=== PATIENT | male | born 1975 | race Caucasian/White ===

== ENCOUNTER 2018-09-28 14:04 | Observation (INO) | payer OTHER ==
--- OUTSIDE RECORDS SUMMARY | 2018-09-28 14:06 | XMS REPORT ---
:1975 Author Organization [employer] Care Team Providers Name Role Phone Gianluca La Nena Provider Role Unavailable Allergies, Adverse Reactions, Alerts Substance Reaction Event Type N.K.D.A. 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 Assessment Establishing care with new doctor, Z76.89 Active encounter for Problem Hypogonadism in male E29.1 Active Problem Erectile dysfunction, unspecified N52.9 Active erectile dysfunction type Medications Medication Code Code Instructions Start End Status Dosage System Date Date Polytrim [facility] 35166519481 05678-6.1 Active 1 drop into UNIT/ML affected Ophthalmic Four eye times a day Probiotic [facility] 23156-80743 Active not defined Ibuprofen [facility] [id number] Active not defined Cialis [facility] [id number] 5 MG Orally Active 1 tablet as Once a day needed Testosterone [facility] [address]-26 Active not defined Xyzal ND 0 Active not defined Results No Known Results Summary Purpose [employer]Clinical[employer] Submission
[2018-09-28] MEDS ORDERED: ONDANSETRON 4 MG/2 ML VIAL ONE (14:47)
[2018-09-28] MEDS ORDERED: MORPHINE 4 MG/ML SYR ONE ×2 (14:47→15:09)
[2018-09-28] MEDS ORDERED: NA CHLORIDE 0.9% 1,000 ML ONE ×2 (14:47→16:19)
[2018-09-28] MEDS ORDERED: KETOROLAC 30 MG/ML INJ ONE (14:47)
[2018-09-28 15:09] LABS: Absolute Lymphocytes (CBC) 1.8 K/uL (0.7-4.9); Absolute Monocytes 0.6 K/uL (0.1-1.3); Absolute Neutrophil 5.6 K/uL (1.8-8.0); Basophils % 0.5 % (0-1.3); Eosinophils % 1.1 % (0-4.4); Hematocrit 46.8 % (39.6-49.0); Lymphocytes % 22.1 % (15.3-44.8); MPV 9.3 fL (7.6-11.3); Monocytes % 7.8 % (3.3-12.3); RBC Red Blood Cell Count 5.53 M/uL (4.33-5.43)
[2018-09-28 15:15] LABS: Urine Blood 3+ (NEG); Urine Glucose NEGATIVE (NEG); Urine Protein 2+ (NEG); Urine Specific Gravity >1.030 (1.005-1.030); Urine pH 5.5 (5.0-7.0)
[2018-09-28 15:19] LABS: Albumin 4.2 g/dL (3.4-5.0); Bilirubin Direct 0.1 mg/dL (0-0.2); Bilirubin Total 0.7 mg/dL (0.2-1.0); Potassium 3.8 mmol/L (3.5-5.1); Protein, Total 7.8 g/dL (6.4-8.2)
[2018-09-28] MEDS ORDERED: FENTANYL CITR 100 MCG/2 ML ONE ×2 (15:21→19:08)
--- NOTE | 2018-09-28 15:31 | RAD REPORT ---
EXAM DESCRIPTION: CT - Stone Protocol - 09/28/2018 3:18 pm CLINICAL HISTORY: Abdominal pain. Lower abdominal pain. Urinary frequency COMPARISON: None. TECHNIQUE: Computed axial tomography of the abdomen pelvis was obtained without oral or IV contrast. Lack of IV and oral contrast limits evaluation of solid organs, bowel, and vessels. Coronal reformat anuj images were obtained and reviewed. All CT scans are performed using dose optimization technique as appropriate and may include automated exposure control or mA/KV adjustment according to patient size. FINDINGS: Small bilateral renal calculi are present. Mild left hydronephrosis. Within the distal lef t ureter is a 3 millimeter calculus. The liver, spleen, pancreas and adrenals appear grossly normal There is no evidence of diverticulitis. IMPRESSION: 3 millimeter calculus distal left ureter resulting in mild left hydronephrosis
[2018-09-28] MEDS ORDERED: TAMSULOSIN 0.4 MG SR CAP ONE (16:19)
[2018-09-28] MEDS ORDERED: HYDROMORPHONE HCL 2 MG/ML inj ONE (17:25)
--- NOTE | 2018-09-28 18:04 | ER ---
Nurse's Notes [facility] Name: Charlie Tirado Age: 43 yrs Sex: Male : 1975 Arrival Date: 09/28/2018 Time: 14:05 Bed 27 Private MD: Gab Sarmiento Diagnosis: Calculus of kidney and ureter;Intractable Pain Presentation: 09/28 14:20 Presenting complaint: Patient states: left flank pain that radiates to LLQ, started sv this morning. Transition of care: patient was not received from another setting of care. Onset of symptoms was September 28, 2018. Care prior to arrival: Medication(s) given: Motrin, Tylenol. 14:20 Method Of Arrival: Ambulatory sv 14:20 Acuity: PAVEL 2 sv 15:13 Risk Assessment: Do you want to hurt yourself or someone else? Patient reports no tw2 desire to harm self or others. Initial Sepsis Screen: Does the patient meet any 2 criteria? No. Patient's initial sepsis screen is negative. Does the patient have a suspected source of infection? No. Patient's initial sepsis screen is negative. Triage Assessment: 21:17 General: Behavior is calm. rv Historical: - Allergies: 14:21 No Known Allergies; sv - PMHx: 14:21 Kidney stones; sv - PSHx: 14:21 Appendectomy; sv - Immunization history:: Adult Immunizations up to date. - Social history:: Smoking status: Patient/guardian denies using tobacco. - Ebola Screening: : Patient denies travel to an Ebola-affected area in the 21 days before illness onset. Screenin:14 Abuse screen: Denies threats or abuse. Nutritional screening: No deficits noted. tw2 Tuberculosis screening: No symptoms or risk factors identified. Fall Risk None identified. Assessment: 14:25 General: Appears uncomfortable. Pain: Complains of pain in left flank. Neuro: Level of tw2 Consciousness is awake, alert, obeys commands, Oriented to person, place, time, situation. Cardiovascular: Heart tones S1 S2 Patient's skin is warm and dry. Respiratory: Airway is patent Respiratory effort is even, unlabored, Respiratory pattern is regular, symmetrical, Breath sounds are clear bilaterally. GI: Bowel sounds present X 4 quads. Abd is soft X 4 quads. : No signs and/or symptoms were reported regarding the genitourinary system. EENT: No signs and/or symptoms were reported regarding the EENT system. Derm: No signs and/or symptoms reported regarding the dermatologic system. Musculoskeletal: Range of motion: intact in all extremities. 14:52 Reassessment: pt writhing in pain at this time, no change in condition after pain tw2 medicine, provider notified. 16:46 Reassessment: Patient and/or family updated on plan of care and expected duration. Pain rv level reassessed. Patient is alert, oriented x 3, equal unlabored respirations, skin warm/dry/pink. Vital Signs: 14:21 BP 123 / 87; Pulse 67; Resp 18; Temp 97.6; Pulse Ox 100% ; Weight 92.99 kg; Height 5 sv ft. 7 in. (170.18 cm); Pain 8/10; 15:02 BP 122 / 81; Pulse 68; Resp 17 S; Pulse Ox 98% on R/A; rv 15:30 BP 123 / 83; Pulse 58; Resp 16 S; Pulse Ox 98% on R/A; rv 16:00 BP 115 / 78; Pulse 70; Resp 18 S; Pulse Ox 98% on R/A; rv 16:30 BP 123 / 75; Pulse 58; Resp 16 S; Pulse Ox 98% on R/A; rv 17:00 BP 124 / 87; Pulse 64; Resp 16; Pulse Ox 97% on R/A; rv 17:30 BP 124 / 79; Pulse 64; Resp 16; Pulse Ox 100% on R/A; rv 18:00 BP 104 / 25; Pulse 70; Resp 18 S; Pulse Ox 100% on R/A; rv 18:30 BP 126 / 81; Pulse 87; Resp 18; Pulse Ox 100% on R/A; rv 19:00 BP 120 / 80; Pulse 57; Resp 17 S; Pulse Ox 100% on R/A; rv 19:30 BP 114 / 69; Pulse 69; Resp 18; Pulse Ox 96% on R/A; rv 20:00 BP 116 / 73; Pulse 56; Resp 18; Pulse Ox 97% on R/A; rv 20:30 BP 122 / 78; Pulse 75; Resp 16; Pulse Ox 96% on R/A; rv 21:00 BP 130 / 80; Pulse 54; Resp 18 S; Pulse Ox 98% on R/A; rv 14:21 Body Mass Index 32.11 (92.99 kg, 170.18 cm) sv ED Course: 14:05 Patient arrived in ED. as 14:06 Gab Sarmiento MD is Private Physician. as 14:20 Triage completed. sv 14:21 Arm band placed on. sv 14:22 Pulse ox on. NIBP on. tw2 14:31 Dorene Escamilla, MELI is Primary Nurse. tw2 14:34 Filipe Rodriguez PA is PHCP. jm 14:34 Ramon Cobb MD is Attending Physician. jmm 14:48 Inserted saline lock: 20 gauge in left antecubital area, using aseptic technique. lt1 14:49 Initial lab(s) drawn, by me, sent to lab. lt1 15:14 Placed in gown. Bed in low position. Adult w/ patient. tw2 15:18 CT completed. Patient tolerated procedure well. Patient moved to CT. Patient moved back nj from CT. 15:19 CT Stone Protocol In Process Unspecified. EDMS 19:11 Ramon Gaona MD is Hospitalizing Provider. [facility] 21:17 No provider procedures requiring assistance completed. Patient admitted, IV remains in rv place. intact. Administered Medications: 14:45 Drug: Zofran 4 mg Route: IVP; Site: left antecubital; tw2 15:03 Follow up: Response: No adverse reaction tw2 14:46 Drug: morphine 4 mg Route: IVP; Site: left antecubital; tw2 15:02 Follow up: Response: No adverse reaction; Pain is unchanged, physician notified tw2 14:47 Drug: Ketorolac 30 mg Route: IVP; Site: left antecubital; tw2 15:03 Follow up: Response: No adverse reaction; Pain is decreased tw2 14:50 Drug: NS 0.9% 1000 ml Route: IV; Rate: 1 bolus; Site: left antecubital; tw2 16:44 Follow up: IV Status: Completed infusion rv 15:00 Drug: morphine 4 mg Route: IVP; Site: left antecubital; tw2 15:20 Follow up: Response: Pain is unchanged, physician notified rv 15:19 Drug: fentaNYL (PF) 50 mcg Route: IVP; Site: left antecubital; rv 16:43 Follow up: Response: Pain is decreased rv 16:00 Drug: NS 0.9% 1000 ml Route: IV; Rate: 1 bolus; Site: left antecubital; rv 19:14 Follow up: IV Status: Completed infusion rv 16:00 Drug: Flomax 0.4 mg Route: PO; rv 16:44 Follow up: Response: Pain is decreased rv 17:18 Drug: Dilaudid 1 mg Route: IVP; Site: left antecubital; rv 18:27 Follow up: Response: Pain is decreased rv 18:50 Drug: fentaNYL (PF) 25 mcg Route: IVP; Site: left antecubital; rv 21:20 Follow up: Response: Pain is decreased rv Outcome: 18:04 Discharge ordered by . palak 19:11 Decision to Hospitalize by Provider. palak 21:18 Admitted to Med/surg accompanied by tech, via wheelchair, room 229, with chart, Report rv called to SAMIR GARRISON 21:18 Condition: good 21:18 Instructed on the need for admit. 21:20 Patient left the ED. rv Signatures: Dispatcher [employer] EDMakayla Mckay, RN RN Filipe Rodriguez PA PA jmm Martinez, Amelia as Wise, Tara RN RN tw2 Jerel Kimble Ronaldo RN RN Miracle Barrow [facility] Corrections: (The following items were deleted from the chart) 14:24 14:20 Acuity: PAVEL 3 [facility]
--- NOTE | 2018-09-28 18:05 | EDPHYS ---
Physician Documentation [facility] Name: Charlie Tirado Age: 43 yrs Sex: Male : 1975 Arrival Date: 09/28/2018 Time: 14:05 Bed 27 Private MD: Gab Sarmiento ED Physician Ramon Cobb HPI: 09/28 14:38 This 43 yrs old Male presents to ER via Ambulatory with complaints of jmm Possible Kidney Stone. 14:38 The patient complains of pain in the left flank. Onset: The symptoms/episode jmm began/occurred acutely, this morning. Associated signs and symptoms: Pertinent positives: nausea, Pertinent negatives: fever. This is a 43 year old male with a history of kidney stones that presents to the ED with complaints of left flank pain beginning this morning similar to previous episodes of kidney stones. . Historical: - Allergies: 14:21 No Known Allergies; sv - PMHx: 14:21 Kidney stones; sv - PSHx: 14:21 Appendectomy; sv - Immunization history:: Adult Immunizations up to date. - Social history:: Smoking status: Patient/guardian denies using tobacco. - Ebola Screening: : Patient denies travel to an Ebola-affected area in the 21 days before illness onset. ROS: 14:38 Abdomen/GI: Positive for nausea. jmm 14:38 Back: Positive for flank pain, on the left. 14:38 All other systems are negative. Exam: 14:38 Constitutional: This is a well developed, well nourished patient who is awake, alert, jmm and in no acute distress. Head/Face: atraumatic. Eyes: EOMI, no conjunctival erythema appreciated ENT: Moist Mucus Membranes Neck: Trachea midline, Supple Chest/axilla: Normal chest wall appearance and motion. Cardiovascular: Regular rate and rhythm. No edema appreciated Respiratory: Normal respirations, no respiratory distress appreciated Abdomen/GI: Non distended, soft Back: Normal ROM Skin: General appearance color normal MS/ Extremity: Moves all extremities, no obvious deformities appreciated, no edema noted to the lower extremities Neuro: Awake and alert, normal gait Psych: Behavior is normal, Mood is normal, Patient is cooperative and pleasant 14:38 Back: CVA tenderness, that is moderate, is noted on the left. Vital Signs: 14:21 BP 123 / 87; Pulse 67; Resp 18; Temp 97.6; Pulse Ox 100% ; Weight 92.99 kg; Height 5 sv ft. 7 in. (170.18 cm); Pain 8/10; 15:02 BP 122 / 81; Pulse 68; Resp 17 S; Pulse Ox 98% on R/A; rv 15:30 BP 123 / 83; Pulse 58; Resp 16 S; Pulse Ox 98% on R/A; rv 16:00 BP 115 / 78; Pulse 70; Resp 18 S; Pulse Ox 98% on R/A; rv 16:30 BP 123 / 75; Pulse 58; Resp 16 S; Pulse Ox 98% on R/A; rv 17:00 BP 124 / 87; Pulse 64; Resp 16; Pulse Ox 97% on R/A; rv 17:30 BP 124 / 79; Pulse 64; Resp 16; Pulse Ox 100% on R/A; rv 18:00 BP 104 / 25; Pulse 70; Resp 18 S; Pulse Ox 100% on R/A; rv 18:30 BP 126 / 81; Pulse 87; Resp 18; Pulse Ox 100% on R/A; rv 19:00 BP 120 / 80; Pulse 57; Resp 17 S; Pulse Ox 100% on R/A; rv 19:30 BP 114 / 69; Pulse 69; Resp 18; Pulse Ox 96% on R/A; rv 20:00 BP 116 / 73; Pulse 56; Resp 18; Pulse Ox 97% on R/A; rv 20:30 BP 122 / 78; Pulse 75; Resp 16; Pulse Ox 96% on R/A; rv 21:00 BP 130 / 80; Pulse 54; Resp 18 S; Pulse Ox 98% on R/A; rv 14:21 Body Mass Index 32.11 (92.99 kg, 170.18 cm) sv MDM: 14:35 Patient medically screened. [facility] 17:15 Data reviewed: vital signs, nurses notes, lab test result(s), radiologic studies, CT [facility] scan. Counseling: I had a detailed discussion with the patient and/or guardian regarding: the historical points, exam findings, and any diagnostic results supporting the discharge/admit diagnosis, lab results, radiology results, the need for outpatient follow up. 18:02 ED course: Symptoms relieved in the ED. Patient was given return precautions for [facility] increased pain, vomiting, fever, or any other concerning symptoms. Patient understood and agrees with the plan of care. . 19:10 ED course: Pain returned. I discussed the patient with Dr. Shaw whom will consult on [facility] admission. I discussed the patient with Dr. Gaona whom accepted admission. . 09/28 14:34 Order name: Basic Metabolic Panel; Complete Time: 15:29 [facility] 09/28 14:34 Order name: CBC with Diff; Complete Time: 15:29 [facility] 09/28 14:34 Order name: Creatinine for Radiology; Complete Time: 15:29 [facility] 09/28 14:34 Order name: Hepatic Function; Complete Time: 15:29 [facility] 09/28 14:34 Order name: Lipase; Complete Time: 15:29 [facility] 09/28 14:59 Order name: Urine Dipstick--Ancillary (enter results); Complete Time: 15:16 09/28 20:16 Order name: CBC with Automated Diff [facility] 09/28 20:16 Order name: CBC with Automated Diff [facility] 09/28 20:16 Order name: Comprehensive Metabolic Panel [facility] 09/28 20:16 Order name: Comprehensive Metabolic Panel [facility] 09/28 20:16 Order name: Magnesium [facility] 09/28 20:16 Order name: Magnesium [facility] 09/28 20:16 Order name: Phosphorus [facility] 09/28 20:16 Order name: Phosphorus [facility] 09/28 14:35 Order name: CT Stone Protocol; Complete Time: 15:33 [facility] 09/28 20:15 Order name: CONS Physician Consult [facility] 09/28 20:16 Order name: Protime (+INR) [facility] 09/28 20:16 Order name: Protime (+INR) [facility] 09/28 20:16 Order name: PTT, Activated Partial Thromb [facility] 09/28 20:16 Order name: PTT, Activated Partial Thromb [facility] 09/28 14:34 Order name: IV Saline Lock; Complete Time: 14:52 [facility] 09/28 14:34 Order name: Labs collected and sent; Complete Time: 14:52 [facility] 09/28 20:15 Order name: NPO EDMS Administered Medications: 14:45 Drug: Zofran 4 mg Route: IVP; Site: left antecubital; tw2 15:03 Follow up: Response: No adverse reaction tw2 14:46 Drug: morphine 4 mg Route: IVP; Site: left antecubital; tw2 15:02 Follow up: Response: No adverse reaction; Pain is unchanged, physician notified tw2 14:47 Drug: Ketorolac 30 mg Route: IVP; Site: left antecubital; tw2 15:03 Follow up: Response: No adverse reaction; Pain is decreased tw2 14:50 Drug: NS 0.9% 1000 ml Route: IV; Rate: 1 bolus; Site: left antecubital; tw2 16:44 Follow up: IV Status: Completed infusion rv 15:00 Drug: morphine 4 mg Route: IVP; Site: left antecubital; tw2 15:20 Follow up: Response: Pain is unchanged, physician notified rv 15:19 Drug: fentaNYL (PF) 50 mcg Route: IVP; Site: left antecubital; rv 16:43 Follow up: Response: Pain is decreased rv 16:00 Drug: NS 0.9% 1000 ml Route: IV; Rate: 1 bolus; Site: left antecubital; rv 19:14 Follow up: IV Status: Completed infusion rv 16:00 Drug: Flomax 0.4 mg Route: PO; rv 16:44 Follow up: Response: Pain is decreased rv 17:18 Drug: Dilaudid 1 mg Route: IVP; Site: left antecubital; rv 18:27 Follow up: Response: Pain is decreased rv 18:50 Drug: fentaNYL (PF) 25 mcg Route: IVP; Site: left antecubital; rv 21:20 Follow up: Response: Pain is decreased rv Disposition: 09/28/18 19:11 Hospitalization ordered by Ramon Gaona for Observation. Preliminary diagnosis are Calculus of kidney and ureter, Intractable Pain. - Bed requested for Telemetry/MedSurg (observation). - Status is Observation. rv - Condition is Stable. - Problem is an acute exacerbation. - Symptoms are unchanged. UTI on Admission? No Signatures: Dispatcher [employer] Makayla Jamison, RN RN Filipe Sheldon PA PA jmm Garcia, Cindy, RN RN Dorene Escamilla RN RN tw2 Ashok Mccord RN RN rv Corrections: (The following items were deleted from the chart) 18:34 18:04 09/28/2018 18:04 Discharged to Home. Impression: Calculus of kidney and ureter. [facility] Condition is Stable. Forms are Work release form, Medication Reconciliation Form, Thank You Letter, Antibiotic Education, Prescription Opioid Use. Follow up: Private Physician; When: 2 - 3 days; Reason: Recheck today's complaints, Continuance of care, Re-evaluation by your physician. [facility] 20:18 19:11 Hospitalization Ordered by Ramon Gaona MD for Observation. Preliminary cg diagnosis is Calculus of kidney and ureter; Intractable Pain. Bed requested for Telemetry/MedSurg (observation). Status is Observation. Condition is Stable. Problem is an acute exacerbation. Symptoms are unchanged. UTI on Admission? No. [facility] 21:20 20:18 09/28/2018 19:11 Hospitalization Ordered by Ramon Gaona MD for Observation. rv Preliminary diagnosis is Calculus of kidney and ureter; Intractable Pain. Bed requested for Telemetry/MedSurg (observation). Status is Observation. Condition is Stable. Problem is an acute exacerbation. Symptoms are unchanged. UTI on Admission? No. cg
[2018-09-28] MEDS ORDERED: MAGNESIUM HYDROXIDE 8% 30 ML PO PRN (20:08)
[2018-09-28] MEDS ORDERED: ACETAMINOPHEN 500 MG TAB PO PRN (20:08)
[2018-09-28] MEDS ORDERED: HYDROCODONE/APAP 7.5/325 MG TAB PO PRN (20:08)
[2018-09-28] MEDS ORDERED: ONDANSETRON 4 MG/2 ML VIAL IV PRN (20:08)
[2018-09-28] MEDS ORDERED: HYDROMORPHONE HCL 1 MG/ML INJ IV PRN (20:30)
[2018-09-28] MEDS ORDERED: CEFTRIAXONE 1 GM/NS 50 ML 1 GM/50 ML BAG IV SCH (21:00)
[2018-09-28] MEDS ORDERED: CEFTRIAXONE 1000 MG/VIAL ONE (21:52)
[2018-09-28] MEDS ORDERED: NA CHLORIDE 0.9% 50 ML ONE (21:53)
[2018-09-28] MEDS: NA CHLORIDE 0.9% 1,000 ML IV SCH (21:59)
[2018-09-28 23:45] VITALS: O2SAT 100; BMI 32.2
[2018-09-29 01:05] LABS: Urine Appearance CLEAR; Urine Bilirubin NEGATIVE (NEG); Urine Blood TRACE (NEG); Urine Color YELLOW; Urine Glucose TRACE (NEG); Urine Protein NEGATIVE (NEG); Urine Urobilinogen 0.2 mg/dL (0.2-1.0); Urine pH 6.5 (5.0-7.0)
[2018-09-29 01:08] LABS: Urine Microscopic Reflex ORDER UMIC
[2018-09-29 01:17] LABS: Urine Bacteria <20 /HPF (NONE SEEN); Urine Culture Reflex Order NOT NEEDED
[2018-09-29 06:02] LABS: Absolute Lymphocytes (CBC) 2.2 K/uL (0.7-4.9); Absolute Monocytes 1.5 K/uL (0.1-1.3); Absolute Neutrophil 7.8 K/uL (1.8-8.0); Basophils % 0.3 % (0-1.3); Eosinophils % 0.1 % (0-4.4); Hematocrit 43.2 % (39.6-49.0); Lymphocytes % 19.3 % (15.3-44.8); MPV 9.1 fL (7.6-11.3); Monocytes % 13.2 % (3.3-12.3)
--- NOTE | 2018-09-29 06:13 | P.HP ---
Certification for Inpatient Patient admitted to: Observation With expected LOS: <2 Midnights Patient will require the following post-hospital care: None Practitioner: I am a practitioner with admitting privileges, knowledge of patient current condition, hospital course, and medical plan of care. Services: Services provided to patient in accordance with Admission requirements found in Title 42 Section 412.3 of the Code of Federal Regulations Patient History Date of Service: 09/28/18 Reason for admission: Nephrolithiasis History of Present Illness: Pt is a 43yo gentleman who came to the hospital with flank tenderness. Patient was having severe pain in the left side. Patient came into the ER and was found to have a kidney stone in the left ureter along with left hydronephrosis. Patient was having pain to the degree where we decided to admit him to the hospital for pain control. Will get Urology consultation in the morning. Allergies No Known Allergies Allergy (Unverified 10/01/11 08:48) Home Medications: Cetirizine HCl [Zyrtec*] 10 mg PO DAILY 09/28/18 Ibuprofen [Motrin*] 400 mg PO DAILY 09/28/18 Ciprofloxacin HCl [Cipro 250 MG Tablet*] 250 mg PO BID #14 tab 09/29/18 - Past Medical/Surgical History Has patient received pneumonia vaccine in the past: No Diabetic: No Past Medical History: Patient denies medical history -: Appendectomy - Family History Father Family History: Reviewed- Non-Contributory - Social History Smoking Status: Never smoker Alcohol use: No CD- Drugs: No Caffeine use: Yes Place of Residence: Home Review of Systems 10-point ROS is otherwise unremarkable Physical Examination - Vital Signs Temperature: 98.5 F Blood Pressure: 119/58 Pulse: 68 Respirations: 18 Pulse Ox (%): 99 - Physical Exam General: Alert, In no apparent distress, Oriented x3 HEENT: Atraumatic, PERRLA, Mucous membr. moist/pink, EOMI, Sclerae nonicteric Neck: Supple, 2+ carotid pulse no bruit, No LAD, Without JVD or thyroid abnormality Respiratory: Clear to auscultation bilaterally, Normal air movement Cardiovascular: Regular rate/rhythm, Normal S1 S2 Gastrointestinal: Normal bowel sounds, Soft and benign, Non-distended, Tenderness ( Left-sided flank tenderness) Musculoskeletal: No clubbing, No swelling, No tenderness Integumentary: No rashes Neurological: Normal gait, Normal speech, Normal strength at 5/5 x4 extr, Normal tone, Sensation intact, Cranial nerves 3-12 intact, Normal affect Lymphatics: No axilla or inguinal lymphadenopathy - Studies Laboratory Data (last 24 hrs) 09/28/18 14:43: Creatinine 1.18 09/28/18 14:43: WBC 8.1, Hgb 15.5, Hct 46.8, Plt Count 262 09/28/18 14:43: Sodium 141, Potassium 3.8, BUN 17, Creatinine 1.14, Glucose 91, Total Bilirubin 0.7, AST 24, ALT 59, Alkaline Phosphatase 114, Lipase 122 Assessment & Plan - Problems (Diagnosis) (1) Nephrolithiasis Onset Date: 09/29/18 Current Visit: Yes Status: Acute (2) Hydronephrosis Current Visit: Yes Status: Acute - Plan Plan: 1. IV fluids and IV antibiotics 2. UA with microscopy 3. urologist consultation 4. Pain control 5. Outpatient cystoscopy 6. Repeat abdominal film 7. GI and DVT prophylaxis - Advance Directives Does patient have a Living Will: No Does patient have a Durable POA for Healthcare: No - Code Status/Comfort Care Code Status Assessed: Yes Code Status: Full Code Critical Care: No Time Spent Managing PTS Care (In Minutes): 50
[2018-09-29 06:21] LABS: Protime INR 1.04
[2018-09-29 06:22] LABS: Albumin 3.4 g/dL (3.4-5.0); Bilirubin Total 0.6 mg/dL (0.2-1.0); Magnesium 1.9 mg/dL (1.8-2.4); Phosphorus 3.1 mg/dL (2.5-4.9); Potassium 4.3 mmol/L (3.5-5.1); Protein, Total 6.6 g/dL (6.4-8.2)
[2018-09-29] MEDS: NA CHLORIDE 0.9% 1,000 ML IV SCH (07:00)
[2018-09-29] MEDS ORDERED: CEFTRIAXONE/SWI 1gm 1 GM/10 ML SYR IV SCH (09:00)
[2018-09-29] MEDS ORDERED: ENOXAPARIN 40 MG/0.4 ML SQ SCH (09:00)
[2018-09-29 10:11] VITALS: BP 119/58; TEMP 98.5
--- NOTE | 2018-09-29 10:12 | P.DS ---
Discharge Date: 09/29/18 Disposition: ROUTINE DISCHARGE Discharge Condition: GOOD Reason for Admission: Nephrolithiasis - Problems (1) Nephrolithiasis Onset Date: 09/29/18 Current Visit: Yes Status: Acute (2) Hydronephrosis Current Visit: Yes Status: Acute Brief History of Present Illness: Pt is a 43yo gentleman who came to the hospital with flank tenderness. Patient was having severe pain in the left side. Patient came into the ER and was found to have a kidney stone in the left ureter along with left hydronephrosis. Patient was having pain to the degree where we decided to admit him to the hospital for pain control. Will get Urology consultation in the morning. Hospital Course: patient requested to speak with me in the morning. He stated he had passed a stone and felt much better. His flank tenderness had resolved. He says his insurance does not cover see him seeing Dr. Shaw. He has seen Dr. Shaw in the past but is not able to any more because of the insurance. Since he is feeling better he did not want me to consult Dr. Shaw. He wanted to go home and follow up as an outpatient with Urology that would take his insurance. At this time he is stable for discharge and will follow-up as an outpatient. Vital Signs/Physical Exam: Temp Pulse Resp BP Pulse Ox 98.5 F 68 18 119/58 L 99 09/29/18 10:10 09/29/18 10:10 09/29/18 10:10 09/29/18 10:10 09/29/18 10:10 General: Alert, In no apparent distress, Oriented x3 Laboratory Data at Discharge: WBC 11.6 K/uL (4.3-10.9) H D 09/29/18 05:42 Hgb 14.4 g/dL (13.6-17.9) 09/29/18 05:42 Hct 43.2 % (39.6-49.0) 09/29/18 05:42 Plt Count 222 K/uL (152-406) 09/29/18 05:42 PT 12.3 SECONDS (9.5-12.5) 09/29/18 05:42 INR 1.04 09/29/18 05:42 APTT 29.9 SECONDS (24.3-36.9) 09/29/18 05:42 Sodium 141 mmol/L (136-145) 09/29/18 05:42 Potassium 4.3 mmol/L (3.5-5.1) 09/29/18 05:42 BUN 17 mg/dL (7-18) 09/29/18 05:42 Creatinine 1.09 mg/dL (0.55-1.3) 09/29/18 05:42 Glucose 103 mg/dL (74-106) 09/29/18 05:42 Phosphorus 3.1 mg/dL (2.5-4.9) 09/29/18 05:42 Magnesium 1.9 mg/dL (1.8-2.4) 09/29/18 05:42 Total Bilirubin 0.6 mg/dL (0.2-1.0) 09/29/18 05:42 AST 17 U/L (15-37) 09/29/18 05:42 ALT 44 U/L (12-78) 09/29/18 05:42 Alkaline Phosphatase 104 U/L (45-117) 09/29/18 05:42 Lipase 122 U/L (73-393) 09/28/18 14:43 Home Medications: Cetirizine HCl [Zyrtec*] 10 mg PO DAILY 09/28/18 Ibuprofen [Motrin*] 400 mg PO DAILY 09/28/18 Ciprofloxacin HCl [Cipro 250 MG Tablet*] 250 mg PO BID #14 tab 09/29/18 New Medications: Ciprofloxacin HCl [Cipro 250 MG Tablet*] 250 mg PO BID #14 tab Patient Discharge Instructions: OK TO DC IV AND DC HOME. FOLLOW-UP WITH UROLOGY IN 1 WEEK. FOLLOW-UP WITH PCP IN 1-2 WEEKS. RETURN TO THE ER IF SYMPTOMS WORSENS Diet: Regular Activity: Fall precautions Followup: Lake Gilman MD [ACTIVE - CAN ADMIT] - Gab Sarmiento MD [Primary Care Provider] - Time spent managing pt's care (in minutes): 30
[2018-09-29] MEDS ORDERED: ENOXAPARIN 30 MG/0.3 ML SQ SCH (18:00)
== END 2018-09-29 11:00 | disposition home or self-care (01) ==
LOC: ER 14:04 → ERHOLD 20:08 → 2ND 21:13
PROVIDERS: ADMIT Hospitalist; ATTEND Hospitalist
DX: N13.2 Hydronephrosis with renal and ureteral calculous obstruction (principal)
CPT/HCPCS: 36415; 74176; 76377; 80048; 80053; 80076; 81003; 81015; 83690; 83735; 84100; 85025; 85610; 85730; 96361; 96374; 96375; 99285; G0378; J0696; J1170; J1650; J2405; J3010; J7030

== ENCOUNTER 2021-12-12 09:47 | Emergency (ER) | payer BC, OTHER ==
--- OUTSIDE RECORDS SUMMARY | 2021-12-12 10:01 | XMS REPORT | Continuity of Care Document ---
:1975 Author Organization [facility] t Address [facility] [place] [address] Care Team Providers Name Role Phone Unavailable Unavailable Unavailable Problems This patient has no known problems. Allergies, Adverse Reactions, Alerts This patient has no known allergies or adverse reactions. Medications Ordered Filled Start Stop Current Ordering Indication Dosage Frequency Signature Comments Components Source Medication Medication Date Date Medication? Clinician (SIG) Name Name Polytrim Polytrim Yes [place] [address] [facility] Ibuprofen Ibuprofen Yes [place] not [facility] [place] [facility] Cialis Cialis Yes [place] [address] [facility] [place] as needed [facility] Xyzal Xyzal Yes [place] not [facility] [place] [facility] Testosteron Testosteron Yes [place] not [facility] Probiotic Probiotic Yes [place] not [facility] [place] [facility] Procedures This patient has no known procedures. Encounters Start End Encounter Admission Attending Care Care Encounter Source Date/Time Date/Time Type Type Clinicians Facility Department ID 2021-08-19 2021-08-19 ambulatory [facility] [id number] [facility] 2021-05-09 2021-05-09 Outpatient [facility] [id number] [facility] 2021-02-12 2021-02-12 Outpatient [facility] [id number] [facility] 2021-02-04 2021-02-04 Out[facility] [id number] [facility] 2020-08-19 2020-08-19 Out[facility] [id number] [facility] 2020-08-14 2020-08-14 [facility] [id number] [facility] 2020-03-11 2020-03-11 [facility] [id number] [address] 09:15[facility] 09:15:00 [facility] 2020-02-27 2020-02-27 [facility] [id number] [address] 12:15[facility]00 12:15:00 t [facility] 2019-09-13 2019-09-13 [facility] [id number] 09:45[facility]00 09:45:00 t [facility] 2019-03-09 2019-03-09 [facility] [id number] 15:27:00 15:27:00 t [facility] 2019-03-09 2019-03-09 [facility] [id number] 10:30[facility]00 10:30:00 t Special[facility] 2018-09-14 2018-09-14 [facility] [id number] [address] 08:26[facility]00 08:26:00 t Specialty/[facility] - Special[facility] 2018-09-08 2018-09-08 [facility] [id number] 09:00[facility] 09:00:00 t Specialty/Nadja lane - Specialty rology [facility] Results This patient has no known results.
[2021-12-12] MEDS ORDERED: LIDOCAINE 1% MPF 5 ML VIAL ONE (10:11)
--- NOTE | 2021-12-12 10:39 | EDPHYS ---
Physician Documentation [facility] Name: Charlie Tirado Age: 46 yrs Sex: Male : 1975 Arrival Date: 12/12/2021 Time: 09:49 Bed 18 Private MD: None, None ED Physician Armando Le HPI: 12/12 10:13 This 46 yrs old Male presents to ER via Ambulatory with complaints of Abscess. jh7 10:13 The patient presents with an abscess of the right leg. Onset: The symptoms/episode jh7 began/occurred 4 day(s) ago. 46-year-old male presents for abscess on the right lateral thigh beginning 4 days ago. He states that he has had abscesses in the past. Denies any medical problems.. Historical: - Allergies: 09:55 No Known Allergies; ab2 - PMHx: 09:55 Kidney stones; ab2 - PSHx: 09:55 None; ab2 - Immunization history:: Adult Immunizations up to date. - Social history:: Smoking status: Patient denies any tobacco usage or history of. ROS: 10:13 Constitutional: Negative for fever, chills, and weight loss, Cardiovascular: Negative jh7 for chest pain, palpitations, and edema, Respiratory: Negative for shortness of breath, cough, wheezing, and pleuritic chest pain. 10:13 Skin: Positive for abscess. 10:13 All other systems are negative. Exam: 10:13 Constitutional: This is a well developed, well nourished patient who is awake, alert, jh7 and in no acute distress. Cardiovascular: Regular rate and rhythm with a normal S1 and S2. No gallops, murmurs, or rubs. Normal PMI, no JVD. No pulse deficits. Respiratory: Lungs have equal breath sounds bilaterally, clear to auscultation and percussion. No rales, rhonchi or wheezes noted. No increased work of breathing, no retractions or nasal flaring. 10:13 Skin: abscess, of the right leg, with fluctuance, that is mild, 2x3 cm, with induration. 18:24 Abdomen/GI: Soft, non-tender, with normal bowel sounds. No distension or tympany. No jh7 guarding or rebound. No evidence of tenderness throughout. MS/ Extremity: Pulses equal, no cyanosis. Neurovascular intact. Full, normal range of motion. Neuro: Awake and alert, GCS 15, oriented to person, place, time, and situation. Motor strength 5/5 in all extremities. Sensory grossly intact. Normal gait. Vital Signs: 09:54 BP 141 / 81; Pulse 77; Resp 17; Temp 98.6; Pulse Ox 98% on R/A; Weight 95.25 kg; Height ab2 5 ft. 7 in. (170.18 cm); Pain 0/10; 11:04 BP 132 / 78; Pulse 76; Resp 17; Temp 98.7(O); Pulse Ox 100% ; Pain 2/10; jh6 09:54 Body Mass Index 32.89 (95.25 kg, 170.18 cm) ab2 Procedures: 10:37 I \T\ D: Incision and drainage was performed for an abscess of the right right hip jh7 Prepped with Betadine, Anesthetized with 5 ml's 1% Lidocaine. Incised with #11 blade. Drained moderate amount purulent fluid. bloody fluid. Loculations removed. Packed with sterile gauze, Dressing: sterile 4x4 gauze, the patient tolerated the procedure well. MDM: 10:00 Patient medically screened. 7 10:37 Data reviewed: vital signs, nurses notes, and as a result, I will discharge patient. [facility] Data interpreted: Pulse oximetry: on room air is 98 %. Interpretation: normal. Counseling: I had a detailed discussion with the patient and/or guardian regarding: the historical points, exam findings, and any diagnostic results supporting the discharge/admit diagnosis, the need for outpatient follow up, a family practitioner, to return to the emergency department if symptoms worsen or persist or if there are any questions or concerns that arise at home. 12/12 10:13 Order name: I\T\D Setup; Complete Time: 10:20 jh7 Administered Medications: 10:19 Drug: Lidocaine (1 %) 1 vials Volume: 5 ml; Route: Infiltration; 6 Disposition: 18:24 Co-signature as Attending Physician, Armando KING was immediately available on-site ms3 in the Emergency Department for consultation in the care of the patient.. Disposition Summary: 12/12/21 10:38 Discharge Ordered Location: Home [facility] Problem: new [facility] Symptoms: have improved jh7 Condition: Stable jh7 Diagnosis - Cutaneous abscess of right lower limb [facility] Followup: [facility] - With: Private Physician - When: 48 Hours - Reason: Recheck today's complaints, Continuance of care, Re-evaluation by your physician Discharge Instructions: - Discharge Summary Sheet [facility] - Skin Abscess [facility] - Incision and Drainage [facility] Forms: - Medication Reconciliation Form [facility] - Thank You Letter [facility] - Antibiotic Education [facility] - Prescription Opioid Use [facility] Prescriptions: - mupirocin 2 % Topical ointment - apply 1 application by TOPICAL route 3 times per day for 7 days; 1 tube; 7 Refills: 0, Product Selection Permitted - Bactrim DS 800-160 mg Oral Tablet - take 1 tablet by ORAL route every 12 hours for 7 days; 14 tablet; Refills: 0, [facility] Product Selection Permitted Signatures: Armando Le, DO ms3 Sharla Olivas, RN RN jh6 Thom Blanco ab2 Sharla Robertson, MEDICAL ASSISTANT MEDICAL ASSISTANT 7 Corrections: (The following items were deleted from the chart) 18:27 18:24 Abdomen/GI: Soft, non-tender, with normal bowel sounds. No distension or tympany. 7 No guarding or rebound. No evidence of tenderness throughout. MS/ Extremity: Pulses equal, no cyanosis. Neurovascular intact. Full, normal range of motion. Neuro: Awake and alert, GCS 15, oriented to person, place, time, and situation. Cranial nerves II-XII grossly intact. Motor strength 5/5 in all extremities. Sensory grossly intact. Cerebellar exam normal. Normal gait. [facility]
--- NOTE | 2021-12-12 10:39 | ER ---
Nurse's Notes [facility] Name: Charlie Tirado Age: 46 yrs Sex: Male : 1975 Arrival Date: 12/12/2021 Time: 09:49 Bed 18 Private MD: None, None Diagnosis: Cutaneous abscess of right lower limb Presentation: 12/12 09:54 Chief complaint: Patient states: "I have a cyst on my right hip." Pt states this ab2 started a few days ago. Pt states it is warm and red. Coronavirus screen: Vaccine status: Patient reports receiving the 2nd dose of the covid vaccine. Client denies travel out of the [place] in the last 14 days. At this time, the client does not indicate any symptoms associated with coronavirus-19. Ebola Screen: Patient negative for fever greater than or equal to 101.5 degrees Fahrenheit, and additional compatible Ebola Virus Disease symptoms Patient denies exposure to infectious person. Patient denies travel to an Ebola-affected area in the 21 days before illness onset. No symptoms or risks identified at this time. Initial Sepsis Screen: Does the patient meet any 2 criteria? No. Patient's initial sepsis screen is negative. Does the patient have a suspected source of infection? No. Patient's initial sepsis screen is negative. Risk Assessment: Do you want to hurt yourself or someone else? Patient reports no desire to harm self or others. Onset of symptoms is unknown. 09:54 Method Of Arrival: Ambulatory ab2 09:54 Acuity: PAVEL 4 ab2 Triage Assessment: 09:56 General: Appears in no apparent distress. comfortable, Behavior is calm, cooperative, ab2 appropriate for age. Pain: Denies pain. EENT: No deficits noted. Neuro: Level of Consciousness is awake, alert, obeys commands, Oriented to person, place, time, situation, Appropriate for age Apron Man are equal bilaterally Moves all extremities. Gait is steady, Speech is normal, Facial symmetry appears normal. Cardiovascular: No deficits noted. Denies chest pain, shortness of breath. Respiratory: No deficits noted. Airway is patent Respiratory effort is even, unlabored, Respiratory pattern is regular, symmetrical. GI: No deficits noted. Abdomen is round non-distended. : No deficits noted. No signs and/or symptoms were reported regarding the genitourinary system. Derm: Abscess located on right hip. Musculoskeletal: No deficits noted. Historical: - Allergies: 09:55 No Known Allergies; ab2 - PMHx: 09:55 Kidney stones; ab2 - PSHx: 09:55 None; ab2 - Immunization history:: Adult Immunizations up to date. - Social history:: Smoking status: Patient denies any tobacco usage or history of. Screenin:23 Abuse screen: Denies threats or abuse. Nutritional screening: No deficits noted. jh6 Tuberculosis screening: No symptoms or risk factors identified. Fall Risk None identified. Assessment: 10:21 General: Appears in no apparent distress. Behavior is calm, cooperative. Pain: jh6 Complains of pain in left iliac crest and left hip Pain currently is 5 out of 10 on a pain scale. Quality of pain is described as burning, Pain began 2-3 days ago. Is continuous. Derm: Skin is intact, Wound noted Wound is abscess 3x5cm mainly induration no drainage. 11:02 Reassessment: wound cleaned i\\T\\d completed without issue. bandaged and wound care jh6 completed as well as wound care instructions Patient states symptoms have improved. Vital Signs: 09:54 BP 141 / 81; Pulse 77; Resp 17; Temp 98.6; Pulse Ox 98% on R/A; Weight 95.25 kg; Height ab2 5 ft. 7 in. (170.18 cm); Pain 0/10; 11:04 BP 132 / 78; Pulse 76; Resp 17; Temp 98.7(O); Pulse Ox 100% ; Pain 2/10; jh6 09:54 Body Mass Index 32.89 (95.25 kg, 170.18 cm) ab2 ED Course: 09:49 Patient arrived in ED. as 09:50 None, None is Private Physician. as 09:55 Triage completed. ab2 09:56 Arm band placed on left wrist. ab2 10:00 Sharla Livingston FNP [facility] jh7 10:00 Armando Le DO is Attending Physician. jh7 10:02 Sharla Olivas RN is Primary Nurse. jh6 10:24 Assist provider with I \\T\\ D: of an abscess on right hip. jh6 11:05 Patient did not have IV access during this emergency room visit. jh6 Administered Medications: 10:19 Drug: Lidocaine (1 %) 1 vials Volume: 5 ml; Route: Infiltration; 6 Outcome: 10:38 Discharge ordered by . 7 11:05 Discharged to home ambulatory. 6 11:05 Condition: good 11:05 Discharge instructions given to patient, Instructed on discharge instructions, follow up and referral plans. Demonstrated understanding of instructions, follow-up care, medications, Prescriptions given X 2. 11:06 Patient left the ED. 6 Signatures: Nadya Sewell Jennifer, RN RN 6 Thom Blanco Jennifer, CENTRAL PROCESSING TECH CENTRAL PROCESSING TECH 7
[2021-12-12 14:33] VITALS: BP 132/78; TEMP 98.7; O2SAT 100
== END 2021-12-12 11:06 | disposition home or self-care (01) ==
LOC: ER 09:47
PROC: 0H9HXZZ Drainage of Right Upper Leg Skin, External Approach (ICD-10-PCS; principal; 2021-12-12)
DX: L02.415 Cutaneous abscess of right lower limb (principal); Z87.442 Personal history of urinary calculi
CPT/HCPCS: 99283

== ENCOUNTER 2021-12-13 16:28 | Emergency (ER) | payer BC ==
--- OUTSIDE RECORDS SUMMARY | 2021-12-13 16:32 | XMS REPORT | Continuity of Care Document ---
:1975 Author Organization [facility] t Address [facility] [place] [address] Care Team Providers Name Role Phone Unavailable [...] Ibuprofen Yes [place] not [facility] [place] Cialis Cialis Yes [place] [address] [facility] [place] as needed [facility] Xyzal Xyzal Yes [place] not [facility] [place] [facility] Testosteron Testosteron Yes [place] [facility] Probiotic Probiotic Yes [place] not [facility] [place] [facility] Procedures This patient has no known procedures. Encounters Start End Encounter Admission Attending Care Care Encounter Source Date/Time Date/Time Type Type Clinicians Facility Department ID 2021-08-19 2021-08-19 [facility] [id number] 2021-05-09 2021-05-09 [facility] [id number] [facility] 2021-02-12 2021-02-12 Outpatient [facility] [id number] [facility] 2021-02-04 2021-02-04 Outpatient [facility] [id number] [facility] 2020-08-19 2020-08-19 Outpatient [facility] [id number] [facility] 2020-08-14 2020-08-14 [facility] [id number] 2020-03-11 2020-03-11 [facility] [id number] 09:15:00 09:15:00 t Specialty[facility] Clin[facility] 2020-02-27 2020-02-27 [facility] [id number] 12:15:00 12:15:00 t Specialty/[facility] Clin[facility] 2019-09-13 2019-09-13 [facility] [id number] 09:45:00 09:45:00 t Specialty/[facility] 2019-03-09 2019-03-09 [facility] [id number] 15:27:00 15:27:00 t Specialty/U [facility] - [facility] ent Clin[facility] 2019-03-09 2019-03-09 [facility] [id number] 10:30:00 10:30:00 t Specialty/[facility] Clin[facility] 2018-09-14 2018-09-14 [facility] [id number] [facility] 08:26:00 08:26:00 t Specialty/U Jodi kes - Specialty rology [facility] 2018-09-08 2018-09-08 [facility] [id number] [facility] 09:00:00 09:00:00 t Specialty/Nadja lane - Specialty rology [facility] Results This patient has no known results.
[2021-12-13] MEDS ORDERED: CLINDAMYCIN IV 150 MG/ML (4 mL) VIAL ONE (17:53)
[2021-12-13] MEDS ORDERED: LIDOCAINE 1% MPF 5 ML VIAL ONE (17:53)
[2021-12-13] MEDS ORDERED: CLINDAMYCIN 900MG/D5W 900 MG/50 ML IVPB IV ONE (17:55)
--- NOTE | 2021-12-13 18:30 | EDPHYS ---
Physician Documentation [facility] Name: Charlie Tirado Age: 46 yrs Sex: Male : 1975 Arrival Date: 12/13/2021 Time: 16:31 Bed 13 Private MD: ED Physician Nilson Worrell HPI: 12/13 17:49 This 46 yrs old Male presents to ER via Ambulatory with complaints of Wound Check - pm1 abscess. 17:49 Patient presents to ED for recheck of: abscess. The affected area is on the lateral pm1 aspect of right thigh. Previous treatment: The patient was initially treated yesterday, the care was rendered at [facility], Treatment type: The patient's original treatment included an I\T\D, Outpatient prescription(s): The patient was given prescription(s) for Bactrim. Progress: The patient reports increased swelling per patient. The patient has not experienced similar symptoms in the past. The patient has been recently seen at the [facility] Emergency Department, yesterday, for similar complaints was given a prescription for antibiotics, I\T\D performed. Patient presenting to the ER with complaints of increased swelling medially from incision and drainage. Negative for fevers or chills. Patient reports minimal drainage from incision and drainage. Historical: - Allergies: 16:45 No Known Allergies; jb4 - Home Meds: 16:45 testosterone undecanoate oral [Active]; Cialis oral [Active]; jb4 - PMHx: 16:45 Kidney stones; jb4 - PSHx: 16:45 Appendectomy; jb4 - Immunization history:: Adult Immunizations up to date. - Social history:: Smoking status: Patient denies any tobacco usage or history of. Patient/guardian denies using alcohol, street drugs. ROS: 17:49 Constitutional: Negative for fever, chills, and weight loss, Cardiovascular: Negative pm1 for chest pain, palpitations, and edema, Respiratory: Negative for shortness of breath, cough, wheezing, and pleuritic chest pain, MS/Extremity: Negative for injury and deformity. 17:49 Neuro: Negative for headache, weakness, numbness, tingling, and seizure. 17:49 Skin: Positive for swelling, of the lateral aspect of right thigh. 17:49 All other systems are negative. Exam: 17:49 Constitutional: This is a well developed, well nourished patient who is awake, alert, pm1 and in no acute distress. Head/Face: Normocephalic, atraumatic. 17:49 Cardiovascular: Exam negative for acute changes, Rate: normal, Rhythm: regular, Pulses: no pulse deficits are appreciated. 17:49 Respiratory: Exam negative for acute changes, respiratory distress, shortness of breath. 17:49 Skin: Wound recheck: Abscess: the packing is in place, phlegmon versus mild cellulitis medial to I\T\D laceration. 17:49 Neuro: Exam negative for acute changes, Orientation: is normal, Mentation: is normal, Motor: is normal, moves all fours, Gait: is steady, at a normal pace, without difficulty. Vital Signs: 16:40 Pulse 74; Resp 16; Temp 99.9(TE); Pulse Ox 97% on R/A; Weight 95.25 kg (R); Height 5 jb4 ft. 7 in. (170.18 cm); Pain 0/10; 18:00 BP 121 / 75; Pulse 87; Resp 19; Pulse Ox 99% ; bp 19:00 BP 130 / 69; Pulse 79; Resp 16; Temp 98.9; Pulse Ox 99% ; ke1 16:40 Body Mass Index 32.89 (95.25 kg, 170.18 cm) jb4 MDM: 16:41 Patient medically screened. pm1 18:25 ED course: Bed side ultrasound performed and no additional area of abscess found. I\T\D pm1 laceration was not large enough from yesterday so I opened it up large enough to probe and break up loculations with my pinky finger. Impression is reactive area versus small area of cellulitis medial to abscess. Explained to patient that if I were in his position I would like IV antibiotic and then trial with PO antibiotics at home. He may return for revaluation tomorrow and if his condition worsens he can be admitted for IV antibiotics and surgery consult since I will be here the next 3 days to evaluate it for improvement or worsening. 18:28 Data reviewed: vital signs. Data interpreted: Pulse oximetry: on room air is 99 %. pm1 Interpretation: normal. Counseling: I had a detailed discussion with the patient and/or guardian regarding: the historical points, exam findings, and any diagnostic results supporting the discharge/admit diagnosis, the need for outpatient follow up, a general surgeon, to return to the emergency department if symptoms worsen or persist or if there are any questions or concerns that arise at home. Administered Medications: 17:45 Drug: Lidocaine (1 %) 5 ml Volume: 5 ml; Route: Infiltration; bp 17:49 CANCELLED (Physician Discretion): Clindamycin 900 mg IM once pm1 18:00 Drug: Clindamycin 900 mg Route: IVPB; Infused Over: 30 mins; Site: left hand; bp 18:53 Follow up: IV Status: Completed infusion; IV Intake: 100ml bp Disposition Summary: 12/13/21 18:30 Discharge Ordered Location: Home pm1 Problem: new pm1 Symptoms: have improved pm1 Condition: Stable pm1 Diagnosis - Cutaneous abscess of right lower limb pm1 Followup: pm1 - With: Emergency Department - When: As needed - Reason: Worsening of condition Followup: pm1 - With: Gregory Villa MD - When: 2 - 3 days - Reason: Recheck today's complaints, Continuance of care, Re-evaluation by your physician Discharge Instructions: - Discharge Summary Sheet pm1 - Skin Abscess pm1 - Incision and Drainage pm1 Forms: - Medication Reconciliation Form pm1 - Thank You Letter pm1 - Antibiotic Education pm1 - Prescription Opioid Use pm1 Prescriptions: - Clindamycin HCl 300 mg Oral Capsule - take 1 capsule by ORAL route every 6 hours for 10 days; 40 capsule; Refills: 0, pm1 Product Selection Permitted Signatures: Juve Steen, MIKE [employer] SUPERVISOR pm1 Gregory Herbert RN RN jb4 Gab Dave RN RN bp Corrections: (The following items were deleted from the chart) 17:49 17:36 Clindamycin 900 mg IM once ordered. pm1 pm1
--- NOTE | 2021-12-13 18:30 | ER ---
Nurse's Notes [facility] Name: Charlie Tirado Age: 46 yrs Sex: Male : 1975 Arrival Date: 12/13/2021 Time: 16:31 Bed 13 Private MD: Diagnosis: Cutaneous abscess of right lower limb Presentation: 12/13 16:40 Chief complaint: Patient states: I was here yesterday,I had an abscess and had it jb4 drained, and packed. It is larger now and the redness has spread. Coronavirus screen: At this time, the client does not indicate any symptoms associated with coronavirus-19. Ebola Screen: No symptoms or risks identified at this time. Initial Sepsis Screen: Does the patient meet any 2 criteria? No. Patient's initial sepsis screen is negative. Does the patient have a suspected source of infection? Yes: Skin breakdown/wound. Risk Assessment: Do you want to hurt yourself or someone else? Patient reports no desire to harm self or others. Onset of symptoms was December 13, 2021. Transition of care: patient was not received from another setting of care. 16:40 Method Of Arrival: Ambulatory jb4 16:40 Acuity: PAVEL 3 jb4 Triage Assessment: 17:00 General: Appears in no apparent distress. uncomfortable, Behavior is calm, cooperative, bp appropriate for age. Pain: Complains of pain in right quadriceps. EENT: No deficits noted. Neuro: No deficits noted. Cardiovascular: No deficits noted. Respiratory: No deficits noted. GI: No signs and/or symptoms were reported involving the gastrointestinal system. : No signs and/or symptoms were reported regarding the genitourinary system. Derm: Abscess located on lateral aspect of right thigh is golf ball sized, LANCED YESTERDAY AT ER. Musculoskeletal: No deficits noted. Historical: - Allergies: 16:45 No Known Allergies; jb4 - Home Meds: 16:45 testosterone undecanoate oral [Active]; Cialis oral [Active]; jb4 - PMHx: 16:45 Kidney stones; jb4 - PSHx: 16:45 Appendectomy; jb4 - Immunization history:: Adult Immunizations up to date. - Social history:: Smoking status: Patient denies any tobacco usage or history of. Patient/guardian denies using alcohol, street drugs. Screenin:00 Abuse screen: Denies threats or abuse. Denies injuries from another. Nutritional bp screening: No deficits noted. Tuberculosis screening: No symptoms or risk factors identified. Fall Risk None identified. Assessment: 17:00 General: SEE TRIAGE NOTE. bp 18:00 Reassessment: PROVIDER AT B/S. bp 19:06 Reassessment: PT D/C HOME AMBULATORY WITH FAMILY, DX WITH CUTANEOUS ABSCESS. ke1 Vital Signs: 16:40 Pulse 74; Resp 16; Temp 99.9(TE); Pulse Ox 97% on R/A; Weight 95.25 kg (R); Height 5 jb4 ft. 7 in. (170.18 cm); Pain 0/10; 18:00 BP 121 / 75; Pulse 87; Resp 19; Pulse Ox 99% ; bp 19:00 BP 130 / 69; Pulse 79; Resp 16; Temp 98.9; Pulse Ox 99% ; ke1 16:40 Body Mass Index 32.89 (95.25 kg, 170.18 cm) jb4 ED Course: 16:31 Patient arrived in ED. as 16:40 Juve Steen NP is PHCP. pm1 16:40 Nilson Worrell MD is Attending Physician. pm1 16:45 Triage completed. jb4 16:45 Arm band placed on left wrist. jb4 16:59 Gab Dave, MELI is Primary Nurse. bp 17:00 Patient has correct armband on for positive identification. Bed in low position. Call bp light in reach. Side rails up X2. Adult w/ patient. 18:00 Inserted saline lock: 22 gauge in left hand, using aseptic technique. bp 18:00 Assist provider with I \T\ D: of an abscess on right LATERAL THIGH Performed by Juve Steen NP. 18:30 Gregory Villa MD is Referral Physician. pm1 19:07 IV discontinued, intact, bleeding controlled, No redness/swelling at site. Pressure ke1 dressing applied. Administered Medications: 17:45 Drug: Lidocaine (1 %) 5 ml Volume: 5 ml; Route: Infiltration; bp 17:49 CANCELLED (Physician Discretion): Clindamycin 900 mg IM once pm1 18:00 Drug: Clindamycin 900 mg Route: IVPB; Infused Over: 30 mins; Site: left hand; bp 18:53 Follow up: IV Status: Completed infusion; IV Intake: 100ml bp Intake: 18:53 IV: 100ml; Total: 100ml. bp Outcome: 18:30 Discharge ordered by MD. pm1 19:07 Discharged to home ambulatory, with family. ke1 19:07 Condition: stable 19:07 Discharge instructions given to patient, family, Instructed on discharge instructions, follow up and referral plans. medication usage, wound care, Demonstrated understanding of instructions, follow-up care, medications, wound care, Prescriptions given X 1. 19:08 Patient left the ED. ke1 Signatures: Nadya Sewell Patrick, NP CHIEF PAYROLL CLERK pm1 Gregory Herbert RN RN jb4 Gab Dave, MELI RN bp Shon Lamar RN RN ke1
[2021-12-13 19:49] VITALS: O2SAT 99
[2021-12-13 19:51] VITALS: BP 130/69; TEMP 98.9
== END 2021-12-13 19:08 | disposition home or self-care (01) ==
LOC: ER 16:28
DX: L02.415 Cutaneous abscess of right lower limb (principal)
CPT/HCPCS: 96365; 99284; S0077